=== PATIENT | female | born 1950 | race Caucasian/White ===

== ENCOUNTER 2017-03-30 11:54 | Emergency (ER) | payer MEDICARE, MEDICAID ==
[2017-03-30 12:30] VITALS: BP 108/64
--- NOTE | 2017-03-30 14:12 | UC ---
Complaint Female HPI - HPI Summary HPI Summary: 1 WEEK OF DYSURIA, URINARY FREQUENCY AND URGENCY. NO NAUSEA OR FEVER. HAS SLIGHT LOW BACK AND LOWER ABDOMINAL DISCOMFORT. FEELS LIKE A UTI. STATES SHE GETS THEM ABOUT ONCE PER YEAR. - History Of Current Complaint Chief Complaint: UCGU Stated Complaint: POSS UTI Time Seen by Provider: 03/30/17 14:06 Hx Obtained From: Patient Onset/Duration: Gradual Onset, Lasting Days, Still Present Severity Initially: Moderate Severity Currently: Moderate Pain Intensity: 8 Pain Scale Used: 0-10 Numeric Character: Burning Aggravating Factor(s): Urination Associated Signs And Symptoms: Positive: Back Pain. Negative: Fever, Vaginal Bleeding/Discharge, Vaginal Discharge, Nausea, Vomiting(# Of Episodes =), Genital Swelling, Genital Blisters - Allergies/Home Medications Allergies/Adverse Reactions: Allergies Allergy/AdvReac Type Severity Reaction Status Date / Time Sulfamethoxazole Allergy Intermediate Rash And Verified 03/30/17 12:30 w/Trimethoprim Itching [From Bactrim] Nitrofurantoin Allergy Unknown Verified 03/30/17 12:30 [From Macrobid] Reaction Details Propoxyphene [From Darvon] AdvReac Severe GI Upset Verified 03/30/17 12:30 PMH/Surg Hx/FS Hx/Imm Hx Endocrine History: Hypothyroidism, Dyslipidemia Psychological History: Anxiety - Surgical History Surgical History: Yes Surgery Procedure, Year, and Place: Child vieyra tonsillectomy and appendectomy - Family History Known Family History: Positive: Other - COLON CANCER - Social History Alcohol Use: Rare Substance Use Type: None Smoking Status (MU): Never Smoked Tobacco Review of Systems Constitutional: Negative Respiratory: Negative Cardiovascular: Negative Gastrointestinal: Abdominal Pain Genitourinary: Dysuria, Frequency, Urgency All Other Systems Reviewed And Are Negative: Yes Physical Exam Triage Information Reviewed: Yes Appearance: Well-Appearing, No Pain Distress, Well-Nourished Vital Signs: Initial Vital Signs Temp 98.3 F 03/30/17 12:26 Pulse 76 03/30/17 12:26 Resp 18 03/30/17 12:26 BP 108/64 03/30/17 12:26 Pulse Ox 96 03/30/17 12:26 Vital Signs Reviewed: Yes Eyes: Positive: Conjunctiva Clear ENT: Positive: Hearing grossly normal Neck: Positive: Supple Respiratory: Positive: No respiratory distress, No accessory muscle use Cardiovascular: Positive: Pulses Normal Abdomen Description: Positive: Soft, Other: - MILDLY TENDER SUPRAPUBIC. Negative: CVA Tenderness (R), CVA Tenderness (L), Distended, Guarding Musculoskeletal: Positive: No Edema Neurological: Positive: Alert Psychological: Positive: Age Appropriate Behavior Skin: Negative: rashes Diagnostics - Laboratory Diagnostic Studies Completed/Ordered: URINE DIP SP. GR. 1.025, TRACE BLOOD, POS NITRITES Complaint Female Dx - Differential Dx/Diagnosis Provider Diagnoses: UTI Discharge - Discharge Plan Condition: Stable Disposition: HOME Prescriptions: Cephalexin CAP* [Keflex 500 CAP*] 1,000 mg PO BID #20 cap Phenazopyridine TAB* [Pyridium TAB*] 200 mg PO TID #6 tab Patient Education Materials: Urinary Tract Infection in Women (ED) Referrals: Laury Solorzano MD [Primary Care Provider] - If Needed
== END 2017-03-30 14:23 | disposition home or self-care (01) ==
LOC: UCEAST 11:54
DX: N39.0 Urinary tract infection, site not specified (principal); B96.20 Unspecified Escherichia coli [E. coli] as the cause of diseases classified elsewhere; E03.9 Hypothyroidism, unspecified; E78.5 Hyperlipidemia, unspecified; F41.9 Anxiety disorder, unspecified; Z88.1 Allergy status to other antibiotic agents; Z88.2 Allergy status to sulfonamides
CPT/HCPCS: 81003; 87077; 87086; 87186; 99212; G0463

== ENCOUNTER 2017-06-23 11:34 | Emergency (ER) | payer MEDICARE, MEDICAID ==
[2017-06-23 11:50] VITALS: BP 144/75
--- NOTE | 2017-06-23 12:10 | UC ---
Complaint Female HPI - HPI Summary HPI Summary: THREE DAYS OF URINARY FREQUENCY URGENCY AND DISCOMFORT WITH MILD LOW BACK PAIN. NO ABDOMAINAL PAIN, NO FEVER. NO NAUSEA, VOMITING, OR DIARRHEA. - History Of Current Complaint Chief Complaint: UCGU Stated Complaint: URINARY COMPLAINT Time Seen by Provider: 06/23/17 11:53 Hx Obtained From: Patient Onset/Duration: Gradual Onset, Lasting Days Timing: Lasting Days Severity Initially: Mild Severity Currently: Mild Character: Dull, Burning Aggravating Factor(s): Urination Associated Signs And Symptoms: Positive: Back Pain. Negative: Vaginal Bleeding/ Discharge, Vaginal Discharge, Nausea, Vomiting(# Of Episodes =) - Risk Factors Ectopic Risk Factor: Negative - Allergies/Home Medications Allergies/Adverse Reactions: Allergies Allergy/AdvReac Type Severity Reaction Status Date / Time Sulfamethoxazole Allergy Intermediate Rash And Verified 06/23/17 11:43 w/Trimethoprim Itching [From Bactrim] Nitrofurantoin Allergy Unknown Verified 06/23/17 11:43 [From Macrobid] Reaction Details Propoxyphene [From Darvon] AdvReac Severe GI Upset Verified 06/23/17 11:43 Home Medications: Home Medications Aspirin Low Dose CHEW TAB* [Aspirin Low Dose TAB*] 81 mg PO DAILY 06/23/17 [ History Confirmed 06/23/17] Ezetimibe TAB* [Zetia TAB*] 10 mg PO DAILY 06/23/17 [History Confirmed 06/23/17] Levothyroxine TAB* [Synthroid TAB*] 150 mcg PO DAILY 06/23/17 [History Confirmed 06/23/17] PMH/Surg Hx/FS Hx/Imm Hx Previously Healthy: Yes - Surgical History Surgical History: Yes Surgery Procedure, Year, and Place: Child vieyra tonsillectomy and appendectomy - Family History Known Family History: Positive: Other - COLON CANCER Negative: Renal Disease - Social History Occupation: Retired Lives: With Family Alcohol Use: None Substance Use Type: None Smoking Status (MU): Former Smoker Length of Time of Smoking/Using Tobacco: 1 PPD for 25 Years When Did the Patient Quit Smoking/Using Tobacco: 1998 - Immunization History Most Recent Influenza Vaccination: Not the 2017/2017 Season Review of Systems Constitutional: Negative Skin: Negative Eyes: Negative ENT: Negative Respiratory: Negative Cardiovascular: Negative Gastrointestinal: Negative Genitourinary: Dysuria, Frequency, Urgency Motor: Negative Neurovascular: Negative Musculoskeletal: Negative Neurological: Negative Psychological: Negative Is Patient Immunocompromised?: No All Other Systems Reviewed And Are Negative: Yes Physical Exam Triage Information Reviewed: Yes Appearance: Well-Appearing, No Pain Distress, Well-Nourished Vital Signs: Initial Vital Signs Temp 98.8 F 06/23/17 11:41 Pulse 66 06/23/17 11:41 Resp 16 06/23/17 11:41 BP 144/75 06/23/17 11:41 Pulse Ox 99 06/23/17 11:41 Vital Signs Reviewed: Yes Eye Exam: Normal ENT Exam: Normal ENT: Positive: Normal ENT inspection, Pharynx normal, TMs normal Dental Exam: Normal Neck exam: Normal Neck: Positive: Supple, Nontender Respiratory Exam: Normal Respiratory: Positive: Chest non-tender, Lungs clear, Normal breath sounds, No respiratory distress Cardiovascular Exam: Normal Cardiovascular: Positive: RRR, No Murmur, Pulses Normal Abdominal Exam: Normal Abdomen Description: Positive: Nontender, No Organomegaly. Negative: CVA Tenderness (R), CVA Tenderness (L) Musculoskeletal Exam: Normal Neurological Exam: Normal Psychological Exam: Normal Skin Exam: Normal Complaint Female Dx - Differential Dx/Diagnosis Differential Diagnosis/HQI/PQRI: Urinary Tract Infection Provider Diagnoses: URINARY TRACT INFECTION Discharge - Discharge Plan Condition: Stable Disposition: HOME Prescriptions: Cephalexin CAP* [Keflex CAP*] 500 mg PO TID #21 cap Patient Education Materials: Urinary Tract Infection in Women (ED) Referrals: Laury Solorzano MD [Primary Care Provider] -
== END 2017-06-23 12:12 | disposition home or self-care (01) ==
LOC: UCCORT 11:34
DX: N39.0 Urinary tract infection, site not specified (principal); M54.5 Low back pain; Z88.1 Allergy status to other antibiotic agents; Z88.5 Allergy status to narcotic agent; Z88.2 Allergy status to sulfonamides; Z87.891 Personal history of nicotine dependence
CPT/HCPCS: 81003; 87086; 99212; G0463

== ENCOUNTER 2017-07-10 11:36 | Emergency (ER) | payer MEDICAID, MEDICARE ==
[2017-07-10 12:10] VITALS: BP 123/72
--- NOTE | 2017-07-10 12:53 | ED ---
Abdominal Pain/Female <Faith Ann - Last Filed: 07/10/17 13:02> - HPI Summary HPI Summary: 66 yr old female with the complaint of suprapubic, pressure, mild itching in suprapubic area. And slight back pain. Denies fever, chills. She has had same symptoms over the past few weeks. Had a urine culture on 06/23 that grew nothing, and she had been on keflex, but she had no improvement in her symptoms at all. She has not had a bingo clerk exam in about 20 years per the patient. <CassiAly - Last Filed: 07/10/17 13:10> - History of Current Complaint Chief Complaint: UCGU Stated Complaint: URINARY Time Seen by Provider: 07/10/17 12:34 Allergies/Adverse Reactions: Allergies Allergy/AdvReac Type Severity Reaction Status Date / Time Sulfamethoxazole Allergy Intermediate Rash And Verified 07/10/17 12:03 w/Trimethoprim Itching [From Bactrim] Nitrofurantoin Allergy Unknown Verified 07/10/17 12:03 [From Macrobid] Reaction Details Propoxyphene [From Darvon] AdvReac Severe GI Upset Verified 07/10/17 12:03 PMH/Surg Hx/FS Hx/Imm Hx Endocrine/Hematology History: Reports: Hx Thyroid Disease Denies: Hx Diabetes Cardiovascular History: Denies: Hx Hypertension, Hx Pacemaker/ICD Respiratory History: Reports: Hx Sleep Apnea - MILD, NO C-PAP Denies: Hx Asthma, Hx Chronic Obstructive Pulmonary Disease (COPD) GI History: Denies: Hx Ulcer History: Denies: Hx Renal Disease Musculoskeletal History: Reports: Hx Arthritis - FINGERS Sensory History: Reports: Hx Cataracts - BILATERAL Denies: Hx Hearing Aid Opthamlomology History: Reports: Hx Cataracts - BILATERAL Psychiatric History: Denies: Hx Panic Disorder - Cancer History Hx Chemotherapy: No Hx Radiation Therapy: No - Surgical History Surgery Procedure, Year, and Place: Child vieyra tonsillectomy and appendectomy Hx Anesthesia Reactions: No Infectious Disease History: No Infectious Disease History: Denies: Hx Hepatitis, Hx Human Immunodeficiency Virus (HIV), Traveled Outside the [place] in Last 30 Days - Family History Known Family History: Positive: Other - COLON CANCER Negative: Renal Disease - Social History Alcohol Use: Occasionally Substance Use Type: Reports: None Smoking Status (MU): Former Smoker Length of Time of Smoking/Using Tobacco: 1 PPD for 25 Years <Aly Ye - Last Filed: 07/10/17 13:10> Review of Systems Positive: dysuria, frequency. Negative: hematuria All Other Systems Reviewed And Are Negative: Yes <Aly Ye - Last Filed: 07/10/17 13:10> Physical Exam Vital Signs On Initial Exam: Initial Vitals Temp Pulse Resp BP Pulse Ox 98 F 63 16 123/72 97 07/10/17 12:04 07/10/17 12:04 07/10/17 12:04 07/10/17 12:04 07/10/17 12:04 Pelvic Exam: Positive: no cerv. motion tender, no masses, lesions - 2 external skin tags, other - thick white vaginal discharge without odor. Negative: blood , tender w/ cervical motion, tender adnexa, tender uterus <Faith Ann - Last Filed: 07/10/17 13:02> Triage Information Reviewed: Yes Vital Signs On Initial Exam: Initial Vitals Temp Pulse Resp BP Pulse Ox 98 F 63 16 123/72 97 07/10/17 12:04 07/10/17 12:04 07/10/17 12:04 07/10/17 12:04 07/10/17 12:04 Vital Signs Reviewed: Yes Appearance: Positive: Well-Appearing, No Pain Distress Skin: Positive: Warm, Skin Color Reflects Adequate Perfusion Head/Face: Positive: Normal Head/Face Inspection Eyes: Positive: EOMI ENT: Positive: Normal ENT inspection, Hearing grossly normal Neck: Positive: Nontender Respiratory/Lung Sounds: Positive: Clear to Auscultation, Breath Sounds Present Cardiovascular: Positive: RRR. Negative: Murmur Abdomen Description: Positive: Nontender. Negative: CVA Tenderness (R), CVA Tenderness (L) Musculoskeletal: Positive: Strength/ROM Intact Neurological: Positive: Sensory/Motor Intact, Alert, Oriented to Person Place, Time, CN Intact II-III Psychiatric: Positive: Normal - [place] Coma Scale Best Eye Response: 4 - Spontaneous Best Motor Response: 6 - Obeys Commands Best Verbal Response: 5 - Oriented <Aly Ye - Last Filed: 07/10/17 13:10> Diagnostics - Vital Signs Vital Signs Temp Pulse Resp BP Pulse Ox 07/10/17 12:04 98 F 63 16 123/72 97 - Laboratory Lab Results: Lab Results 07/10/17 Range/Units 12:23 POC Urine Color Other POC Urine Clarity Slightly cloudy POC Urine pH 5.5 (5-9) POC Ur Specif [place] 1.020 (1.010-1.030) POC Urine Protein Negative (Negative) POC Ur Glucose (UA) Negative (Negative) POC Urine Ketones Negative (Negative) POC Urine Blood 1+ H (Negative) POC Urine Nitrite Negative (Negative) POC Urine Bilirubin Negative (Negative) POC Urine Urobilinogen 0.2 (Negative) POC U Leukocyte Esteras Negative (Negative) Lab Statement: Any lab studies that have been ordered have been reviewed, and results considered in the medical decision making process. <Faith Ann - Last Filed: 07/10/17 13:02> - Vital Signs Vital Signs Temp Pulse Resp BP Pulse Ox 07/10/17 12:04 98 F 63 16 123/72 97 - Laboratory Lab Results: Lab Results 07/10/17 Range/Units 12:23 POC Urine Color Other POC Urine Clarity Slightly cloudy POC Urine pH 5.5 (5-9) POC Ur Specif [place] 1.020 (1.010-1.030) POC Urine Protein Negative (Negative) POC Ur Glucose (UA) Negative (Negative) POC Urine Ketones Negative (Negative) POC Urine Blood 1+ H (Negative) POC Urine Nitrite Negative (Negative) POC Urine Bilirubin Negative (Negative) POC Urine Urobilinogen 0.2 (Negative) POC U Leukocyte Esteras Negative (Negative) Lab Statement: Any lab studies that have been ordered have been reviewed, and results considered in the medical decision making process. <Aly Ye - Last Filed: 07/10/17 13:10> Abdominal Pain Fem Course/Dx <Faith Ann - Last Filed: 07/10/17 13:02> - Course Course Of Treatment: 66 yr old female examined by Taylor Ann NP and with symptoms and findings of yeast infection. Swab sent for affirm. The patient will be treated with diflucan. <Aly Ye - Last Filed: 07/10/17 13:10> - Diagnoses Provider Diagnoses: Yeast infection Discharge <Faith Ann - Last Filed: 07/10/17 13:02> <Aly Ye - Last Filed: 07/10/17 13:10> - Discharge Plan Condition: Good Disposition: HOME Prescriptions: Fluconazole [Diflucan 150 MG (NF)] 150 mg PO ONCE #2 tab Patient Education Materials: Vaginitis (ED) Referrals: Laury Solorzano MD [Primary Care Provider] - 3 Days
--- NOTE | 2017-07-12 07:59 | UC ---
- Progress Note Progress Note: (+) BV -- start flagyl 500 mg PO BID for 7 days and can stop the diflucan so no second dose recheck prn with PCP med sent Course/Dx - Course Course Of Treatment: 66 yr old female examined by Taylor Ann NP and with symptoms and findings of yeast infection. Swab sent for affirm. The patient will be treated with diflucan. - Diagnoses Provider Diagnoses: Yeast infection
== END 2017-07-10 13:20 | disposition home or self-care (01) ==
LOC: UCCORT 11:36
DX: B96.89 Other specified bacterial agents as the cause of diseases classified elsewhere (principal)
CPT/HCPCS: 81003; 87480; 87510; 99212; G0463

== ENCOUNTER 2017-09-20 10:30 | Emergency (ER) | payer MEDICARE ==
[2017-09-20 11:02] VITALS: BP 108/68
--- NOTE | 2017-09-20 11:40 | RAD ---
HISTORY: Cough COMPARISONS: October 17, 2011 VIEWS: 4: Frontal dual-energy and lateral views of the chest. FINDINGS: CARDIOMEDIASTINAL SILHOUETTE: The cardiomediastinal silhouette is normal. EMGHANN: The meghann are normal. PLEURA: The costophrenic angles are sharp. No pleural abnormalities are noted. LUNG PARENCHYMA: There is hyperinflation with flattening of the diaphragm and expansion of the AP diameter of the chest. ABDOMEN: The upper abdomen is clear. There is no subphrenic gas. BONES AND SOFT TISSUES: No bone or soft tissue abnormalities are noted. OTHER: None. IMPRESSION: HYPERINFLATION, CONSISTENT WITH COPD. NO ACTIVE CARDIOPULMONARY DISEASE.
--- NOTE | 2017-09-20 11:55 | ED ---
Respiratory - HPI Summary HPI Summary: 67 yr old female with the complaint of runny nose, muscle aches, chills, coughing. Onset a couple of days ago. She was possible exposed to people with influenza five days ago. She has some pain in the left ribs with coughing. Denies SOB. - History of Current Complaint Chief Complaint: UCGeneralIllness Stated Complaint: ACHY,SAUCEDO,CONGESTION Time Seen by Provider: 09/20/17 11:06 Pain Intensity: 8 - Allergy/Home Medications Allergies/Adverse Reactions: Allergies Allergy/AdvReac Type Severity Reaction Status Date / Time nitrofurantoin Allergy Unknown Verified 09/20/17 10:54 [From Macrobid] Reaction Details propoxyphene [From Darvon] Allergy GI Upset Verified 09/20/17 10:54 sulfamethoxazole Allergy Rash And Verified 09/20/17 10:54 [From Bactrim] Itching trimethoprim [From Bactrim] Allergy Rash And Verified 09/20/17 10:54 Itching Home Medications: Home Medications Acetaminophen [Tylenol Extra Strength] 1,000 mg PO Q6H PRN 09/20/17 [History Confirmed 09/20/17] PMH/Surg Hx/FS Hx/Imm Hx Endocrine/Hematology History: Reports: Hx Thyroid Disease Denies: Hx Diabetes Cardiovascular History: Denies: Hx Hypertension, Hx Pacemaker/ICD Respiratory History: Reports: Hx Sleep Apnea - MILD, NO C-PAP Denies: Hx Asthma, Hx Chronic Obstructive Pulmonary Disease (COPD) GI History: Denies: Hx Ulcer History: Denies: Hx Renal Disease Musculoskeletal History: Reports: Hx Arthritis - FINGERS Sensory History: Reports: Hx Cataracts - BILATERAL Denies: Hx Hearing Aid Opthamlomology History: Reports: Hx Cataracts - BILATERAL Psychiatric History: Denies: Hx Panic Disorder - Cancer History Hx Chemotherapy: No Hx Radiation Therapy: No - Surgical History Surgery Procedure, Year, and Place: Child vieyra tonsillectomy and appendectomy Hx Anesthesia Reactions: No Infectious Disease History: No Infectious Disease History: Denies: Hx Hepatitis, Hx Human Immunodeficiency Virus (HIV), Traveled Outside the [place] in Last 30 Days - Family History Known Family History: Positive: Other - COLON CANCER Negative: Renal Disease - Social History Alcohol Use: Rare Substance Use Type: Reports: None Smoking Status (MU): Former Smoker Length of Time of Smoking/Using Tobacco: 1 PPD for 25 Years Review of Systems Constitutional: Negative Positive: Nasal Discharge Positive: Cough Positive: Myalgia All Other Systems Reviewed And Are Negative: Yes Physical Exam Triage Information Reviewed: Yes Vital Signs On Initial Exam: Initial Vitals Temp Pulse Resp BP Pulse Ox 98.8 F 77 20 108/68 95 09/20/17 10:56 09/20/17 10:56 09/20/17 10:56 09/20/17 10:56 09/20/17 10:56 Vital Signs Reviewed: Yes Appearance: Positive: Well-Appearing Skin: Positive: Warm Head/Face: Positive: Normal Head/Face Inspection Eyes: Positive: EOMI ENT: Positive: Pharynx normal, Nasal congestion, TMs normal. Negative: Muffled voice, Hoarse voice Neck: Positive: Supple, Nontender Respiratory/Lung Sounds: Positive: Clear to Auscultation, Breath Sounds Present Cardiovascular: Positive: RRR. Negative: Murmur Abdomen Description: Positive: Nontender Musculoskeletal: Positive: Strength/ROM Intact Neurological: Positive: Sensory/Motor Intact, Alert, Oriented to Person Place, Time, CN Intact II-III Psychiatric: Positive: Normal - [place] Coma Scale Best Eye Response: 4 - Spontaneous Best Motor Response: 6 - Obeys Commands Best Verbal Response: 5 - Oriented Coma Scale Total: 15 Diagnostics - Vital Signs Vital Signs Temp Pulse Resp BP Pulse Ox 09/20/17 10:56 98.8 F 77 20 108/68 95 - Laboratory Lab Statement: Any lab studies that have been ordered have been reviewed, and results considered in the medical decision making process. - Radiology chest xray pa/lat Xray Interpretation: No Acute Changes - COPD Radiology Interpretation Completed By: Radiologist Disposition - Course Course Of Treatment: 67 yr old female with the complaint of URI symptoms. Chest xray neg for acute findings. - Diagnoses Provider Diagnoses: Upper respiratory infection Discharge - Discharge Plan Condition: Good Disposition: HOME Prescriptions: Albuterol HFA INHALER* [Ventolin HFA Inhaler*] 1 - 2 puff INH Q4H PRN #1 mdi PRN Reason: Cough Benzonatate CAP* [Tessalon 100 MG CAP*] 100 mg PO TID #14 cap Patient Education Materials: Upper Respiratory Infection (ED) Referrals: Laury Solorzano MD [Primary Care Provider] - 2 Days
== END 2017-09-20 12:03 | disposition home or self-care (01) ==
LOC: UCCORT 10:30
DX: J06.9 Acute upper respiratory infection, unspecified (principal); Z88.1 Allergy status to other antibiotic agents; Z87.891 Personal history of nicotine dependence
CPT/HCPCS: 71046; 87502; 99212; G0463

== ENCOUNTER 2018-10-10 08:50 | Emergency (ER) | payer MEDICARE ==
--- OUTSIDE RECORDS SUMMARY | 2018-10-10 08:59 | XMS REPORT | Continuity of Care Document ---
:1950 External Reference #:[id number] Author Name Amanda Flores O.D. Address [address] [place] [address] Care Team Providers Name Role Phone Valerie Carr M.D. 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 Active Onset: 09/23/2018 Tear film insufficiency Amanda Flores O.D. Active Onset: 09/23/2018 Vitreous degeneration Amanda Flores O.D. 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 ETOH Use Denies alcohol use Tobacco Use Start: Unknown End: Unknown Patient is a former smoker Recreational Drug Use Denies Drug Use Smoking Status Reviewed: 09/23/18 Patient is a former smoker Allergies, Adverse Reactions, Alerts Date Description Reaction Status Severity Comments 09/23/2018 Seasonal Active Medications Medication Date Status Form Strength Qnty SIG Indications Ordering Provider Levothyroxine Active Tablets 150mcg 1 tablet Unknown Sodium 000 daily Immunizations Description No Information Available Vital Signs Description No Information Available Results Description No Information Available Procedures Date Code Description Status 06/25/2013 32531 Extracapsular Cataract Extraction W/Intraocular Lens Completed 06/18/2013 62534 Extracapsular Cataract Extraction W/Intraocular Lens Completed 06/10/2013 18174 Ophthalmic Biometry Completed 06/10/2013 68814 Ophthalmic Biometry Completed 06/10/2013 82346 New Patient Comprehensive Exam Completed 05/16/2013 14493 New Patient Comprehensive Exam Completed Encounters Description No Information Available Plan of Treatment 09/23/2018 - Amanda Flores O.D.[id number] Nonexudative age-related macular degeneration, bilateral, early dry stageComments:Start taking the areds 2 vitamin formulaFollow up:1 Year Follow Up OCT MAC You can expect to have your eyes dilated at your next visit. If Dr. Flores orders any additional testing, it may require extra time. We recommend that you bring sunglasses, as dilation drops often make you light sensitive until they wear off. We always recommend you bring someone to drive you home if you are uncomfortable driving with your eyes dilated. If you have any questions before your next visit, feel free to call our office at .[phone] Vitreous degeneration, [id number] Dry eye syndrome of bilateral lacrimal glandsComments: artificial tears as [id number] Presence of intraocular lensComments:The artificial lens implants in both eyes appear to be stable at this time.
[2018-10-10 09:28] VITALS: BP 144/79
--- NOTE | 2018-10-10 10:10 | UC ---
General HPI - HPI Summary HPI Summary: States her ears have been popping with sinus pressure, congestion and cough for the past month. No fever. No N/V/D. No CP or SOB. +productive cough. Hasn' t tried anything otc. No hx of seasonal allergies. THere are smokers in her building. meds; reviewed - History of Current Complaint Chief Complaint: UCRespiratory Stated Complaint: UPPER RESPORT Time Seen by Provider: 10/10/18 09:59 Pain Intensity: 3 - Allergy/Home Medications Allergies/Adverse Reactions: Allergies Allergy/AdvReac Type Severity Reaction Status Date / Time nitrofurantoin Allergy Unknown Verified 10/10/18 09:29 [From Macrobid] Reaction Details propoxyphene [From Darvon] Allergy GI Upset Verified 10/10/18 09:29 sulfamethoxazole Allergy Rash And Verified 10/10/18 09:29 [From Bactrim] Itching trimethoprim [From Bactrim] Allergy Rash And Verified 10/10/18 09:29 Itching PMH/Surg Hx/FS Hx/Imm Hx Previously Healthy: Yes Endocrine History: Hypothyroidism - Surgical History Surgical History: Yes Surgery Procedure, Year, and Place: Child vieyra tonsillectomy and appendectomy - Family History Known Family History: Positive: Other - COLON CANCER Negative: Renal Disease - Social History Alcohol Use: Rare Substance Use Type: None Smoking Status (MU): Former Smoker Length of Time of Smoking/Using Tobacco: 1 PPD for 25 Years When Did the Patient Quit Smoking/Using Tobacco: 1996 - Immunization History Most Recent Influenza Vaccination: Not the 2016/2017 Season Review of Systems All Other Systems Reviewed And Are Negative: Yes Constitutional: Positive: Negative ENT: Positive: Sinus Congestion Respiratory: Positive: Cough Physical Exam Triage Information Reviewed: Yes Appearance: Well-Appearing Vital Signs: Initial Vital Signs Temp 98.2 F 10/10/18 09:23 Pulse 67 10/10/18 09:23 Resp 18 10/10/18 09:23 BP 144/79 10/10/18 09:23 Pulse Ox 95 10/10/18 09:23 Vital Signs Reviewed: Yes Eyes: Positive: Conjunctiva Clear ENT: Positive: Pharyngeal erythema, Nasal congestion, Other - clear fluid in TM' s b/l. Post nasal drip noted Neck: Positive: Supple, Nontender Respiratory: Positive: Lungs clear, Normal breath sounds Cardiovascular: Positive: RRR, No Murmur Course/Dx - Course Course Of Treatment: This is a 68 yr old with congestion, cough and ear dysfunction Assessment Nontoxic appearing Viral syndrome vs seasonal allergies Plan Recommend starting nasal spray as directed Start zyrtec if able to get as a prescription. If not able to get it as a prescription then recommend getting over the counter, zyrtec, claritin or glen - whichever is most cost effective and take as directed If symptoms persist or worsen, follow up with PCP or return to urgent care Your blood pressure is slightly elevated today, recommend follow up with your PCP - Diagnoses Provider Diagnosis: Congestion of both ears, Viral syndrome Discharge - Sign-Out/Discharge Documenting (check all that apply): Patient Departure All imaging exams completed and their final reports reviewed: No Studies - Discharge Plan Condition: Good Disposition: HOME Prescriptions: Cetirizine* [ZyrTEC 10 MG TAB*] 10 mg PO DAILY #30 tab Fluticasone NASAL SPRAY 50MCG* [Flonase NASAL SPRAY 50MCG*] 2 spray BOTH NARES DAILY #1 btl Referrals: Valerie Carr MD [Primary Care Provider] - Additional Instructions: Recommend starting nasal spray as directed Start zyrtec if able to get as a prescription. If not able to get it as a prescription then recommend getting over the counter, zyrtec, claritin or glen - whichever is most cost effective and take as directed If symptoms persist or worsen, follow up with PCP or return to urgent care Your blood pressure is slightly elevated today, recommend follow up with your PCP - Billing Disposition and Condition Condition: GOOD Disposition: Home
== END 2018-10-10 10:12 | disposition home or self-care (01) ==
LOC: UCEAST 08:50
DX: H83.8X3 Other specified diseases of inner ear, bilateral (principal); B34.9 Viral infection, unspecified; E03.9 Hypothyroidism, unspecified; Z88.2 Allergy status to sulfonamides; Z88.5 Allergy status to narcotic agent; Z88.3 Allergy status to other anti-infective agents; Z87.891 Personal history of nicotine dependence; Z77.22 Contact with and (suspected) exposure to environmental tobacco smoke (acute) (chronic)
CPT/HCPCS: 99212; G0463